=== PATIENT | male | born 1935 | race Caucasian/White ===

== ENCOUNTER → 2021-05-15 13:03 | Outpatient (BNVA) | payer MEDICARE, BC, SELFPAY | PROVIDERS: PCP Internal Medicine; Visit Provider Psychiatry & Neurology Neurology | DX: G20 Parkinson's disease (principal); F41.9 Anxiety disorder, unspecified; G47.9 Sleep disorder, unspecified | CPT/HCPCS: 99202 ==

== ENCOUNTER 2022-09-12 12:21 | Inpatient (IN) | payer MEDICARE, BC, SELFPAY ==
--- OUTSIDE RECORDS SUMMARY | 2022-09-12 12:24 | XMS_ITS | Continuity of Care Document ---
Author Name Unknown Organization [facility] ter Address [address] [place] [address]- Care Team Providers Care Silvering Department Supervisor Name Role Phone France BARBOSA, Anton Beltran Primary Care Physician En[place] [facility] [place] Date(s): 04/03/21 - 04/05/[address] [id number] Discharge Disposition: A-Transfer VNA/Home Health Attending Physician: Soila Cerna MD Admitting Physician: Soila Cerna MD Referring Physician: Not on Staff, Referring MD Allergies, Adverse Reactions, Alerts Substance Reaction Severity Status penicillins Active Latex Active Mushrooms Active iodine Active Child ASA Active Immunizations Given and Recorded Vaccine Date Status Refusal Reason influenza virus vaccine, inactivated 11/04/20 Cornelius rded SARS-CoV-2 (COVID-19) mRNA BNT-162b2 vac 11/04/20 Recorded SARS-CoV-2 (COVID-19) mRNA BNT-162b2 vac 04/09/20 Recorded SARS-CoV-2 (COVID-19) mRNA BNT-162b2 vac 03/19/20 Recorded pneumococcal 13-valent vaccine 12/04/14 Recorded Not Given Vaccine Date Status Refusal Reason pneumococcal 13-valent vaccine 09/24/18 Not Given Patient Refuses pneumococcal 23-valent vaccine 1 09/17/12 Not Give n Patient Refuses 1Result Comment: pt received in [place] Medications alfuzosin 10 mg oral tablet, extended release 1 tablet = 10 mg, By Mouth, Daily, # 30 tablet, 0 Refills, Maintenance, 01/17/21 22:32:00 EST, ER Tablet, Partial fill upon patient request if the prescription is for a schedule II opioid drug. Start Date: 01/17/21 Status: Ordered carbidopa-levodopa 25 mg-100 mg oral tablet 1 tablet, By Mouth, 4 times a day, # 120 tablet, 0 Refills, Maintenance, 01/18/21 14:47:00 EST, Tablet, Partial fill upon patient request if the prescription is for a schedule II opioid drug. Start Date: 01/18/21 Status: Ordered carbidopa-levodopa 25 mg-250 mg oral tablet 1 tablet, By Mouth, Daily at bedtime, 0 Refills, Maintenance, 01/18/21 14:46:00 EST, Partial fill upon patient request if the prescription is for a schedule II opioid drug. Start Date: 01/18/21 Status: Ordered clonazePAM 0.5 mg oral tablet 2 tablet = 1 mg, By Mouth, Daily at bedtime, # 60 tablet, 0 Refills, Maintenance, 05/16/20 12:07:00EDT, Tablet, Partial fill upon patient request if the prescription is for a schedule II opioid drug. Start Date: 05/16/20 Status: Ordered diclofenac 1% topical gel = 2 Gm, Topically, 4 times a day, # 240 Gm, 0 Refills, Maintenance, 05/16/20 12:07:00 EDT, Gel, [facility]/pharmacy #[id number], Partial fill upon patient request if the prescription is for a schedule II opioid drug., 172, cm, 05/16/20 7:28:00 EDT, Height, 72.8, k... Start Date: 05/16/20 Status: Ordered entacapone 200 mg oral tablet 1 tablet = 200 mg, By Mouth, 4 times a day, # 120 tablet, 0 Refills, Maintenance, 01/17/21 22:33:00EST, Tablet, Partial fill upon patient request if the prescription is for a schedule II opioid drug. Start Date: 01/17/21 Status: Ordered meloxicam 7.5 mg oral tablet 1 tablet = 7.5 mg, By Mouth, Daily, # 30 tablet, 0 Refills, Maintenance, 01/17/21 22:33:00 EST, Tablet, Partial fill upon patient request if the prescription is for a schedule II opioid drug. Start Date: 01/17/21 Status: Ordered Tylenol 325 mg oral tablet 975 mg, Tablet, By Mouth, 04/05/21 9:00:00 EST Start Date: 04/05/21 Stop Date: 04/05/21 Status: Completed Tylenol 325 mg oral tablet 975 mg, 3, tablet, By Mouth, 3 times a day, Refills 0, Maintenance, 05/16/20 12:07:00 EDT, Partial fill upon patient request if the prescription is for a schedule II opioid drug. Start Date: 05/16/20 Status: Ordered Vitamin D3 5000 intl units oral capsule 1 capsule = 125 mcg, By Mouth, Daily, with food, # 250 capsule, 0 Refills, Maintenance, 01/17/21 22:33:00 EST, Capsule, Partial fill upon patient request if the prescription is for a schedule II opioid drug. Start Date: 01/17/21 Status: Ordered Problem List Condition Effective Dates Status Health Status Inform ant ARF (acute renal failure)(Confirmed) Active Delirium(Confirmed) Active Osteoarthritis(Confirmed) Active Parkinson disease(Confirmed) Active Multifocal pneumonia(Confirmed) Active SBO (small bowel obstruction)(Confirmed) Active Results Radiology Reports * Exam Date Time Procedure Performing Provider Status 04/03/21 6:26 PM Chest Portable Tomasz Tillman; Auth ( Verified) Notes: (Chest Portable) Reason For Exam: Shortness of Breath RESULT: Chest Portable Chest Portable Reason: Shortness of Breath; Clinical Question(s): Other: COMPARISON: X-ray 04/02/2021 FINDINGS: LINES AND TUBES: Enterogastric tube tip and side-port are in the stomach. LUNGS AND PLEURA: Low lung volumes and bibasilar atelectasis. Central vascular markings are mildly prominent. A small right effusion is suspected. No pneumothorax. HEART, MEDIASTINUM AND LOPEZ: Mild prominence of the cardiac silhouette. Aorta is calcified. BONES AND SOFT TISSUES: No acute abnormality. IMPRESSION: Pulmonary vascular congestion and small right pleural effusion consistent with CHF. WSN: [id number] Ordering Physician: Oliver Delcid Dictated By: Davin Emanuel MD Dictated Date/Time: 04/03/21 6:42 pm Reviewed By: Davin Emanuel MD Signed By: Davin Emanuel MD Signed Date/Time: 04/03/21 6:42 pm Transcribed By: JOSE Transcribed Date/Time: 04/03/21 6:40 pm * Exam Date Time Procedure Performing Provider Status 04/03/21 9:00 AM Knee 1 or 2 Views Left Fallon Khan; Auth (Verified) Notes: (Knee 1 or 2 Views Left) Reason For Exam: Pain RESULT: Knee 1 or 2 Views Left Knee 2 Views Left Reason: Pain; Clinical Question(s): Fracture COMPARISON: None. FINDINGS: Suboptimal lateral view due to patient rotation. There is no evidence of acute or healing fracture, dislocation or bone lesion. Moderate decrease in lateral and medial compartment joint space with associated subchondral sclerosis. Marginal spurring at the patella and lateral compartment. No osteochondral defects or intra-articular loose bodies. No definite joint effusion. Vascular calcifications. IMPRESSION: Suboptimal examination. No acute osseous abnormality. Moderate osteoarthritis. I have personally reviewed the images and I agree with this report. WSN: [id number] Ordering Physician: Katia Deal Dictated By: Mino Velasquez DO Dictated Date/Time: 04/03/21 11:03 a Reviewed By: Lamberto Lehman MD, V Signed By: Lamberto Lehman MD, V Signed Date/Time: 04/03/21 11:08 am Transcribed By: JOSE Transcribed Date/Time: 04/03/21 10:56 am Vital Signs Most recent to oldest [Reference Range]: 1 2 3 Oxygen Saturation [94-100 %] 95 % (04/05/21 5:32 PM) 98 % (04/05/21 6:48 AM) 97 % (04/05/21 4:45 AM) Pulse Rate [55-90 bpm] 78 bpm (04/05/21 5:32 PM) 79 bpm (04/05/21 6:48 AM) 85 bpm (04/05/21 4:45 AM) Blood Pressure [90-138/55-84 mm Hg] 142/59mm Hg *H* (04/05/21 5:32 PM) 151/63mm Hg *H* (04/05/21 6:48 AM) 149/83mm Hg *H* (04/05/21 4:45 AM) Respiratory Rate [16-30 br/min] 18 br/min (04/05/21 5:32 PM) 18 br/min (04/05/21 12:03 PM) 18 br/min (04/05/21 6:48 AM) Temperature [96.8-100.4 DegF] 98.3 DegF (04/05/21 5:32 PM) 98.2 DegF (04/05/21 6:48 AM) 98.0 DegF (04/05/21 4:45 AM) Mode of Delivery (Oxygen) Room air (04/05/21 5:32 PM) Room air (04/05/21 6:48 AM) Room air (04/05/21 4:45 AM) Blood pressure sites Arm, right (04/05/21 5:32 PM) Arm, left (04/05/21 6:48 AM) Arm, right (04/05/21 4:45 AM) Temperature Route Oral (04/05/21 5:32 PM) Oral (04/05/21 6:48 AM) Oral (04/05/21 4:45 AM) Social History Social History Type Response Smoking Status Cigars or pipes but not daily within last 30 days entered on: 09/23/18 Sex
--- OUTSIDE RECORDS SUMMARY | 2022-09-12 12:24 | XMS_ITS | Patient Health Record ---
Author Name Unknown Organization [facility] Address [address] [facility] [address] [place] [address] Care Team Providers Care Profile Saw Setup Operator Name Role Phone Anna Cole Primary Care Provider Unavailabl e ALLERGIES Allergen (clinical drug ingredient) Drug/Non Drug Allergy documented on EMR Reaction Allergy Type Onset Date Status Unknown Drug Allergy Active Motrin Unknown Drug Allergy Active Latex Latex Unknown Allergy Active Substance with penicillin structure and antibacterial mechanism of action (substance) Penicillins Unknown Drug Allergy Active REASON FOR REFERRAL No Information MEDICATIONS Medication SIG (Take, Route, Frequency, Duration) Notes Start Date End Date Status rOPINIRole HCl 0.5 MG 1 tablet 1 to 3 hours before bedtime Orally 3 times a day Active Nasal [place] 0.05 % 2 sprays in each nostril as needed Nasally daily Active Albuterol Sulfate 108 (90 Base) MCG/ACT 2 puff as needed Inhalation every 4 hrs Active Alfuzosin HCl ER 10 MG 1 tablet immediat lester after the same meal Orally Once a day Active traZODone HCl 50 MG 1 tablet at bedtime as needed Orally Once a day Active clonazePAM 0.5 MG 1 tablet at bedtime Orally Once a day Active Sinemet 25-100 MG 1.5 tablet Orally 4 times a day Active Lidocaine 5 % 1 patch remove after 12 hours Externally every 24 hours Active Cyanocobalamin 1000 MCG 1 tablet Orally Once a day Active DULoxetine HCl 60 MG 1 capsule Orally Once a day Active Vitamin D 3000 units take 1 daily Active Loratadine 10 MG 1 tablet Orally Once a day Active SOCIAL HISTORY Sex Assigned At : Social History Observation Description Sex Assigned At Unknown PROBLEMS Problem Type ICD Code Onset Dates Problem Status W/U Status Risk SNOMED Code Notes Problem Primary osteoarthritis , 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 confirmed 594996001 Problem Primary osteoarthritis , left ankle and foot (M19.072) Active confirmed [id number] PLAN OF TREATMENT No Information Insurance Providers Payer Name Payer Address Payer Phone Subscriber Number Group Number Insured Name Patient Relationship to Insured Coverage Start Date Coverage End Date [employer] of [place] [address] [place] [phone] [id number] Florin Allred Self - patient is the insured Medex Blue Hyper Wear [address] [place] [phone] [id number] Florin Allred Self - patient is the insured MEDICAL (GENERAL) HISTORY Medical History History ICD Code GERD heme + stool small bowel obstruction anemia benign prostatic hypertrophy Parkinson's disease inflammatory arthritis osteoarthritis of the ankles osteoarthritis of the left knee osteoarthritis of the lumbar spine osteoarthritis of both hands osteoarthritis of both feet osteoporosis hearing loss bilateral Surgical History Surgery Date(Month/Year) right knee replacement s/p hip replacement appendectomy cataract removal right foot hammer toe repair cholecystectomy hernia repair knee surgery colectomy
--- OUTSIDE RECORDS SUMMARY | 2022-09-12 12:24 | XMS_ITS | Continuity of Care Document ---
Author Name Unknown Organization [facility] Address [address] [place] [address]- Care Team Providers Care Crop Setting Out Machine Operator Name Role Phone France BARBOSA, Anton Beltran Primary Care Physician Encounter 01/23/21 - 02/21/21 [facility] [address] [place] [address]- Discharge Disposition: GOALS MET Allergies, Adverse Reactions, Alerts Substance Reaction Severity Status penicillins Active Latex Active iodine Active Child ASA Active Mushrooms Active Immunizations Given and Recorded Vaccine Date [...] Patient Refuses 1Result Comment: pt received in [place] Medications alfuzosin 10 mg oral tablet, extended [...] 0 Refills, Maintenance, 05/16/20 12:07:00 EDT, Gel, [facility]/pharmacy #[id number], Partial fill upon patient request [...] opioid drug. Start Date: 01/17/21 Status: Ordered lidocaine 5% topical film 2 patch, Topically, Daily, # 60 patch, 0 Refills, Maintenance, 05/16/20 12:08:00 EDT, Patch, [facility]/pharmacy #[id number], Partial fill upon patient request if the prescription is for a schedule II opioid drug., 2 patch Topically Daily, 172, cm, 05/16/20 7:28:0... Start Date: 05/16/20 Status: Ordered meloxicam 7.5 mg oral tablet 1 tablet = 7.5 mg, By Mouth, Daily, # 30 tablet, 0 Refills, Maintenance, 01/17/21 22:33:00 EST, Tablet, Partial fill upon patient request if the prescription is for a schedule II opioid drug. Start Date: 01/17/21 Status: Ordered rOPINIRole 1 mg oral tablet = 1 mg, By Mouth, 3 times a day, # 90 tablet, 0 Refills, Maintenance, 05/16/20 12:09:00 EDT, Tablet, [facility]/pharmacy #[id number], Partial fill upon patient request if the prescription is for a schedule II opioid drug., 172, cm, 05/16/20 7:28:00 EDT, Height, 72... Start Date: 05/16/20 Status: Ordered Tylenol 325 mg oral tablet [...] pneumonia(Confirmed) Active SBO (small bowel obstruction)(Confirmed) Active Social History Social History Type Response Smoking Status Cigars or pipes but not daily within last 30 days entered on: 09/23/18 Sex
--- OUTSIDE RECORDS SUMMARY | 2022-09-12 12:24 | XMS_ITS | Continuity of Care Document ---
Author Name Unknown Organization [facility] ter Address [address] [place] [address]- Care Team Providers Care Gang Plank Workman Name Role Phone France BARBOSA, Anton Beltran Primary Care Physician [place] [facility] [id number] Date(s): 01/22/21 - 02/21/[address] [place] [address] [address]- Attending Physician: Not on Staff, Attending MD Admitting Physician: Not on Staff, Admitting MD Referring Physician: Not on Staff, Referring [...] Patient Refuses 1Result Comment: pt received in [place] Medications alfuzosin 10 mg oral tablet, extended [...] 0 Refills, Maintenance, 05/16/20 12:07:00 EDT, Gel, [facility]/pharmacy #[id number], Partial fill upon patient [...] 0 Refills, Maintenance, 05/16/20 12:08:00 EDT, Patch, [facility]/pharmacy #[id number], Partial fill upon patient request if [...] 0 Refills, Maintenance, 05/16/20 12:09:00 EDT, Tablet, [facility]/pharmacy #[id number], Partial fill upon patient [...]
--- OUTSIDE RECORDS SUMMARY | 2022-09-12 12:24 | XMS_ITS | Continuity of Care Document ---
Author Name Unknown Organization [facility] Address [address] [place] [address]- Care Team Providers Care Bread Pan Greaser Name Role Phone France BARBOSA, Anton Beltran Primary Care Physician Encounter 06/15/21 - 07/26/21 [facility] [address] [place] [address]- Discharge Disposition: GOALS MET Allergies, Adverse Reactions, Alerts Substance Reaction Severity Status penicillins Active Latex Active iodine Active Child ASA Active Mushrooms Active Immunizations Given and Recorded Vaccine Date Status Refusal Reason influenza virus vaccine, inactivated 11/04/20 Cornelius rded influenza virus vaccine, inactivated 10/22/19 Cornelius rded influenza virus vaccine, inactivated 11/24/18 Cornelius rded influenza virus vaccine, inactivated 12/14/17 Cornelius rded influenza virus vaccine, inactivated 11/19/16 Cornelius rded influenza virus vaccine, inactivated 12/17/15 Cornelius rded influenza virus vaccine, inactivated 10/26/14 Cornelius rded influenza virus vaccine, inactivated 11/29/13 Cornelius rded SARS-CoV-2 (COVID-19) mRNA BNT-162b2 vac 11/04/20 Recorded SARS-CoV-2 (COVID-19) mRNA BNT-162b2 vac 04/09/20 Recorded SARS-CoV-2 (COVID-19) mRNA BNT-162b2 vac 03/19/20 Recorded pneumococcal 13-valent vaccine 12/04/14 Recorded pneumococcal 23-valent vaccine 10/12/12 Recorded tetanus/diphtheria/pertussis, acel(Tdap) 10/12/12 Recorded Not Given Vaccine Date Status Refusal Reason pneumococcal 13-valent vaccine 09/24/18 Not Given Patient Refuses pneumococcal 23-valent vaccine 1 09/17/12 Not Give n Patient Refuses 1Result Comment: pt received in [place] Medications alfuzosin 10 mg oral tablet, extended release 1 tablet = 10 mg, By Mouth, Daily, # 30 tablet, 0 Refills, Maintenance, 01/17/21 22:32:00 EST, ER Tablet, Partial fill upon patient request if the prescription is for a schedule II opioid drug. Start Date: 01/17/21 Status: Ordered amLODIPine 5 mg oral tablet 5 mg, 1, tablet, By Mouth, Daily, # 90 tablet, Refills 2, Tot. Refills 2, Maintenance, 06/14/21 9:19:00 EDT, Route to Pharmacy Electronically, [facility]/pharmacy #[id number], Partial fill upon patient request ifthe prescription is for a schedule II opioid drug.,... Start Date: 06/14/21 Stop Date: 03/11/22 Status: Ordered carbidopa-levodopa 25 mg-100 mg oral [...] opioid drug. Start Date: 01/18/21 Status: Ordered Chem 7 in a week Chem 7 in a week, See Instructions, # 1 each, Refills 0, Tot. Refills 0, Maintenance, Results to PCP, 06/14/21 9:24:00 EDT, Supply Start Date: 06/14/21 Status: Ordered clonazePAM 0.5 mg oral tablet [...] 0 Refills, Maintenance, 05/16/20 12:07:00 EDT, Gel, [facility]/pharmacy #[id number], Partial fill upon patient request if [...] Status: Ordered rOPINIRole 1 mg oral tablet 1 tablet = 1 mg, By Mouth, 3 times a day, # 90 tablet, 5 Refills, Maintenance, 06/05/21 14:03:00 EDT, Tablet, Partial fill upon patient request if the prescription is for a schedule II opioid drug. Start Date: 06/05/21 Status: Ordered Tylenol 325 mg oral capsule 2 capsule = 650 mg, By Mouth, 2 times a day, PRN as needed for fever, # 20 capsule, 0 Refills, Maintenance, 06/05/21 0:45:00 EDT, Capsule, Partial fill upon patient request if the prescription is fora schedule II opioid drug. Start Date: 06/05/21 Status: Ordered Vitamin D3 5000 intl units [...] Inform ant ARF (acute renal failure)(Confirmed) Active COVID-19(Confirmed) Active COVID-19(Confirmed) 1 06/14/21 Active Delirium(Confirmed) Active HTN (hypertension)(Confirmed) Active Osteoarthritis(Confirmed) Active Parkinson disease(Confirmed) Active Parkinson's disease(Confirmed) Active Multifocal pneumonia(Confirmed) Active SBO (small bowel obstruction)(Confirmed) Active SBO (small bowel obstruction)(Confirmed) Active 1Problem added by Discern Expert Social History Social History Type Response Smoking Status Cigars or pipes but not daily within last 30 days entered on: 09/23/18 Sex
--- OUTSIDE RECORDS SUMMARY | 2022-09-12 12:24 | XMS_ITS | Continuity of Care Document ---
Author Name Unknown Organization [facility] Address Unknown Care Team Providers Care Laboratory Chief Name Role Phone France BARBOSA, Anton Beltran Primary Care Physician Encounter [facility] [id number] Date(s): 04/05/21 - 05/16/21 [facility] Attending Physician: Nba BARBOSA, Curly Barrientos Referring Physician: Not on Staff, Referring MD [...] Patient Refuses 1Result Comment: pt received in [place] Medications alfuzosin 10 mg oral tablet, extended [...] 0 Refills, Maintenance, 05/16/20 12:07:00 EDT, Gel, [facility]/pharmacy #[id number], Partial fill upon [...]
--- OUTSIDE RECORDS SUMMARY | 2022-09-12 12:24 | XMS_ITS | Continuity of Care Document ---
Author Name Unknown Organization [facility] Address Unknown Care Team Providers Care Web Development Consultant Name Role Phone France BARBOSA, Anton Beltran Primary Care Physician [place] [facility] [place] [facility] [id number] Date(s): 04/16/21 - 05/16/21 [facility] Attending Physician: Arden Nathan Admitting Physician: AdmArden larose Referring Physician: AdmArden larose Allergies, Adverse Reactions, Alerts Substance Reaction Severity [...] Patient Refuses 1Result Comment: pt received in [place] Medications alfuzosin 10 mg oral tablet, extended [...] 0 Refills, Maintenance, 05/16/20 12:07:00 EDT, Gel, [facility]/pharmacy #[id number], Partial fill upon patient request [...]
[2022-09-12 13:17] VITALS: BMI 20.2
[2022-09-12 13:18] VITALS: BP 141/65; PULSE 80; RESP 16; TEMP 36.3; O2SAT 99
--- NOTE | 2022-09-12 15:26 | HO.PSYADMNOT ---
HPI Date of Service: 09/12/22 Chief Complaint: F32.9, F41.9, F02.81 Sources of Information: patient interviewed, chart reviewed and crisis/core team assessment reviewed HPI Subjective Notes: [place] Warning and Conditional Voluntary Narrative: The patient is an 87-year-old [place] male, for more than 50 years, father of adult children, retired independent business min, living with his family with good social support referred from the emergency room of [facility] for exacerbation of depression with suicidal ideation by overdose on pills. On interview, the patient denies prior psychiatric history, he stated that he was diagnosed with Parkinson's disorder 8 years ago and he had been following treatment. He admitted in the last 6 months he started presenting depressive symptoms elicited by depressed mood, anhedonia, lack of energy, feelings of hopelessness and recently suicidal ideation. The patient took 6 or 7 pills and he decided to go to his basement and overdose so he could be found by his family. He has never had before suicidal ideation. He informed that and he was rushed to the emergency room, medically cleared and transferring to this facility for psychiatric stabilization. The patient adamantly denies psychotic symptoms he denies visual or auditory hallucinations, he denies psychotic symptoms with his Parkinson medication and he stated that he has used clonazepam in the past for insomnia and anxiety. He has an extensive medical history with several abdominal surgeries but he was able to cope with them very well. We discussed at length risks, benefits, side-effects and alternatives and he agreed on the plan below. He is able to contract for safety. Medical Evaluation Reviewed: Hospitalist Sumaya Pending [facility] Medical History Anxiety Arthritis Depression Parkinson's disease Sleep disorder Surgical History H/O knee surgery History of hip surgery Hx of appendectomy Hx of cholecystectomy Family History: Denies Social History: The patient was born and raised in [place], he emigrated to the [facility] and lived in [place] for several years. He is for more than 50 years and his father of adult children. He has good social support Substance History: Denies Trauma History: Denies Diagnostics Vital Signs (24Hr): Vital Signs - 24 hr 09/12/22 13:18 Temperature 97.3 F Pulse Rate 80 Respiratory Rate 16 Blood Pressure 141/65 H Pulse Oximetry 99 Oxygen Delivery Method Room Air BMI result Body Mass Index 20.2 Meds/Allergies Meds Home Medications Medication Instructions Recorded Confirmed Type albuterol sulfate 90 mcg/actuation 1 puff inhalation QID 05/15/21 05/15/21 History aerosol inhaler (ProAir HFA) albuterol sulfate 90 mcg/actuation 1 puff inhalation QID 05/15/21 05/15/21 History aerosol inhaler (Ventolin HFA) alfuzosin 10 mg tablet,extended 10 mg PO DAILY 05/15/21 05/15/21 History release 24 hr cefixime 400 mg capsule (Suprax) 400 mg PO DAILY 05/15/21 05/15/21 History fluticasone furoate 50 inhalation 05/15/21 05/15/21 History mcg/actuation blister powder for inhalation ibuprofen 800 mg tablet 800 mg PO Q8H 05/15/21 05/15/21 History meloxicam 7.5 mg tablet 7.5 mg PO DAILY 05/15/21 05/15/21 History ropinirole 1 mg tablet 1 mg PO TID 05/15/21 05/15/21 History sertraline 50 mg tablet 50 mg PO DAILY 05/15/21 05/15/21 History Allergies Allergies Allergy/AdvReac Type Severity Reaction Status Date / Time Penicillins Allergy Mild Rash Verified 05/15/21 13:18 aspirin Allergy Unknown Rash Uncoded 05/15/21 13:18 iodine Allergy Unknown rash Uncoded 05/15/21 13:18 latex Allergy Unknown Unknown Uncoded 05/15/21 13:18 Mental Status Exam Mental Status Exam Patient Appearance: Appropriate (On hospital gowns) Patient Orientation: Person and Situation Level of Consciousness: Awake and Appropriate Patient Behavior: Cooperative Mood Description: Calm and Depressed Affect Description: Constricted Patient Cognition Impaired: Yes Ability to Follow Directions: Good Speech Pattern: Clear Hallucinations: None Delusions: Not Present Thought Process: Distracted Thought Content: positive for Circumstantial Depressive Symptoms: Changes in Appetite, Feelings of Worthlessness and Significant Weight Gain Judgement: Fair Assessment & Plan Assessment & Plan (1) Major depressive disorder: Status: Acute Code(s): F32.9 - Major depressive disorder, single episode, unspecified (2) Parkinson's disease: Status: Acute Code(s): G20 - Parkinson's disease (3) Arthritis: Status: Acute Code(s): M19.90 - Unspecified osteoarthritis, unspecified site Plan The patient is an elderly is panic male with no prior formal psychiatric history but with a history of Parkinson for the last 8 years who was brought into the facility after he overdose on prescription pills in a suicidal attempt. This is the 1st and the patient had a depressive episode and is in clear correlation with worsening of his health and progression of Parkinson's. The patient is able to contract for safety in the facility. Plan 1. Gather collateral information. 2. Continue with regular medications. 3. Continue with medical workout. 4. Regular blood work. 5. Reassessment with results 6. Start Lexapro 5 mg p.o. q.a.m. to target depression. 7. Referral to occupational therapist for neuro cognitive testing. Patient educated on: diagnosis and therapeutic strategies Informed Consent: understands Reason for continued inpatient stay Substantial Risk for: harm to self, inability to function, rapid decompensation and med/psych decompensation Statement Statement: I have reviewed the history and physical and performed a pertinent examination on my patient. No changes have occurred unless specified. If the History and Physical was not performed prior to admission, the Hospitalist's service will be consulted for completing the admission physical. Time Spent With Patient Time: Total time managing care of this patient today __45__ minutes.
[2022-09-12] MEDS: Carbidopa/Levodopa 25/100 TABLET 1.5 TAB PO ×3 (17:43→22:15)
[2022-09-12 18:00] VITALS: BP 139/81; PULSE 69; RESP 18; TEMP 36.1; O2SAT 100
--- NOTE | 2022-09-12 18:16 | HO.PM.IMCN ---
History of Present Illness Data of Consult Service Date: 09/12/22 Primary Care Provider: None Physician HPI Reason for consult: Admission H&P Pt is an 87-year-old male with a PMH significant for?Parkinson's disease, arthritis, HTN, multiple SBOs, depression, insomnia, and anxiety who is admitted to [facility] for increased depression anxiety with SI by overdosing on pills. Medical consult for admission H&P. ?Patient complains of chronic arthritic hand, knee, and right ankle pain. Patient also has a history of chronic constipation, though he states likely he has been able to go normally. Patient has no acute medical complaints at this time. Denies headache, vision changes, lightheadedness, dizziness. No chest pain/pressure, palpitations. Denies shortness of breath. No fever, chills, nausea, vomiting, abdominal pain. Review of Systems Review of Systems: Chronic and, knee, ankle pain Patient has no acute medical complaints at this time Yes all other systems are reviewed and are negative [facility] Medical History Anxiety Arthritis Depression Parkinson's disease Sleep disorder Surgical History H/O knee surgery History of hip surgery Hx of appendectomy Hx of cholecystectomy Social History Household Members: Spouse Housing: House Do you presently have visiting nurse or other home services: No Alcohol intake: current Patient Tobacco Use Status: Current everyday Tobacco user Tobacco use type: Cigar Smoked in Last 30 Days: Yes Patient Interested in Nicotine Replacement: No Patient Given Instructions on How to Stop Smoking: No Second Hand Smoke Exposure: No Use of substances other than those prescribed or required for medical reasons: No Have you been hit, kicked, punched, or otherwise hurt by someone within the past year? If so, by whom?: No Do you feel safe in your current relationship?: Yes Is there a partner from a previous relationship who is making you feel unsafe now?: No Are you made to feel afraid or neglected: No Advance Directives: No Advance Directives Information Provided: No Do you have thoughts of harming others: None Do you have a plan to hurt others: No Plan Recently lost weight without trying: Yes How much weight loss: 24-33 pounds Eating poorly because of decreased appetite: No Nutrition screen score: 5 Nutrition Risks: No Nutritional Risk Poor oral hygiene: No Meds Allergies Allergy/AdvReac Type Severity Reaction Status Date / Time Penicillins Allergy Mild Rash Verified 05/15/21 13:18 aspirin Allergy Unknown Rash Uncoded 05/15/21 13:18 iodine Allergy Unknown rash Uncoded 05/15/21 13:18 latex Allergy Unknown Unknown Uncoded 05/15/21 13:18 Active Medications: Current Medications Acetaminophen (Acetaminophen 325 Mg Tablet) 650 mg PO Q6H PRN PRN Reason: Headache/Pain Mild Scale (1-3) Al Hydroxide/Mg Hydroxide (Magnesium Hydrox/Alum Hydrox 30 Ml Oral.Susp) 30 ml PO Q6H PRN PRN Reason: Heartburn/Nausea Carbidopa/Levodopa (Carbidopa/Levodopa 25/100 Tablet) 1.5 tab PO 0700,1000,1300,1600,1900,2100 [facility] Last Admin: 09/12/22 17:43 Dose: 1.5 tab Clonazepam (Clonazepam 1 Mg Tablet) 1 mg PO BEDTIME [facility] Donepezil HCl (Donepezil Hcl 5 Mg Tablet) 5 mg PO BEDTIME [facility] Duloxetine HCl (Duloxetine Hcl 30 Mg Capsule.Dr) 30 mg PO BID [facility] Entacapone (Entacapone 200 Mg Tablet) 200 mg PO QID [facility] Finasteride (Finasteride 5 Mg Tablet) 5 mg PO DAILY [facility] Hydroxyzine HCl (Hydroxyzine Hcl 25 Mg Tablet) 25 mg PO Q6H PRN PRN Reason: Anxiety Magnesium Hydroxide (Milk Of Magnesia 30 Ml Oral.Susp) 30 ml PO DAILY PRN PRN Reason: Constipation Mirtazapine (Mirtazapine 30 Mg Tablet) 30 mg PO BEDTIME [facility] Polyethylene Glycol (Polyethylene Glycol 3350 17 Gm Powd.Pack) 17 gm PO DAILY [facility] Trazodone HCl (Trazodone Hcl 50 Mg Tablet) 50 mg PO BEDTIME MRX1 PRN PRN Reason: Insomnia Home Medications Medication Instructions Recorded Confirmed Last Taken Type albuterol sulfate 90 mcg/actuation 1 puff inhalation QID 05/15/21 09/12/22 Unknown History aerosol inhaler (ProAir HFA) alfuzosin 10 mg tablet,extended 10 mg PO DAILY 05/15/21 09/12/22 Unknown History release 24 hr ibuprofen 800 mg tablet 800 mg PO Q8H 05/15/21 09/12/22 Unknown History carbidopa 25 mg-levodopa 100 mg 1 tab PO 6XD Parkinsons 09/12/22 09/12/22 Unknown History tablet (Sinemet) clonazepam 0.5 mg tablet 1 mg PO BEDTIME 09/12/22 09/12/22 Unknown History Physical Exam Vital Signs and Narrative: Vital Signs: Last Vital Signs Temp 97.3 F 09/12/22 13:18 Pulse 80 09/12/22 13:18 Resp 16 09/12/22 13:18 BP 141/65 H 09/12/22 13:18 Pulse Ox 99 09/12/22 13:18 O2 Del Method Room Air 09/12/22 13:18 BMI result Body Mass Index 20.2 General: AOx4, no acute distress Resp: CTA bilaterally CVS: S1, S2, RRR GI: +BS, NT, no distention Skin: Diffuse bruising on upper extremities Neuro: Cranial nerves II-XII grossly intact bilaterally. Motor grossly intact bilaterally. Diminished strength 4/5 of upper and lower extremities bilaterally. Extremities: No edema Psych: Appropriate affect Assessment and Plan (1) Routine history and physical examination of adult: Status: Acute Plan Pt is an 87-year-old male with a PMH significant for?Parkinson's disease, arthritis, HTN, multiple SBOs, depression, insomnia, and anxiety who is admitted to [facility] for increased depression anxiety with SI by overdosing on pills. Medical consult for admission H&P. Mood disorder Plan as per psychiatry Parkinson's disorder Continue carbidopa-levodopa, entacapone Arthritis Patient complains of arthritic pain in hands, knees, right ankle Continue ibuprofen Chronic constipation Continue polyethylene glycol HTN Continue alfuzosin Thank you for allowing us to participate in the care of this patient. Signing off at this time. Please let us know if there are any acute complaints or questions. Time Spent With Patient Time: Total time managing care of this patient today ____ minutes.
--- NOTE | 2022-09-12 18:19 | PC.ADMIT ---
87 year old male arrived on unit at 1240 having been transported from [facility] secondary to increased SI with plans including taking pills, shooting himself or jumping [place] a [place] near his [place]. Patient stated he was anxious and irritable and took some extra Parkinsons pills. Patient is alert and oriented x4 . Signed CV on admission. Participated in skin check/weight. Past medical history includes small bowel obstruction, HTN, . Patient participated in admission process. Oriented to the unit. Observed interacting with peers.Appetite good. Well groomed and appears younger than stated age. Legals signed by patient. Oriented to unit. Hospitalist consult done.
[2022-09-12] MEDS: DULoxetine HCl 30 MG CAPSULE.DR PO (20:20)
[2022-09-12] MEDS: clonazePAM 1 MG TABLET PO (20:20)
[2022-09-12] MEDS: Donepezil HCl 5 MG TABLET PO (20:20)
[2022-09-12] MEDS: Mirtazapine 30 MG TABLET PO (20:20)
[2022-09-13 06:00] VITALS: BP 138/62; PULSE 69; RESP 16; TEMP 36.4; O2SAT 99
[2022-09-13 07:58] LABS: Alanine Aminotransferase < 5 U/L (0-40); Albumin Level 3.8 g/dL (3.5-5.0); Alkaline Phosphatase 86 U/L (39-117); Anion Gap 14 (12-20); Aspartate Amino Transferase 13 U/L (5-37); Bilirubin Total 1.4 mg/dL (0.0-1.0); Blood Urea Nitrogen 23 mg/dL (9-16); Calcium 9.2 mg/dL (8.4-10.2); Carbon Dioxide 20 mmol/L (22-29); Chloride 109 mmol/L (96-108); Cholesterol 161 mg/dL; Estimated Glomerular Filt Rate > 60; Glucose Fasting 86 mg/dL (60-99); HDL Cholesterol 55 mg/dL; LDL Cholesterol Calculated 93 mg/dl; Potassium 4.1 mmol/L (3.3-5.1); Sodium 139 mmol/L (135-145); Total Protein 6.1 g/dL (6.5-8.0); Triglycerides 65 mg/dL
[2022-09-13] MEDS: Finasteride 5 MG TABLET PO (08:04)
[2022-09-13] MEDS: polyethylene glycoL 3350 17 GM POWD.PACK PO (08:05)
[2022-09-13] MEDS: DULoxetine HCl 30 MG CAPSULE.DR PO ×2 (08:05→20:07)
[2022-09-13] MEDS: Carbidopa/Levodopa 25/100 TABLET 1.5 TAB PO ×5 (08:08→18:39)
--- NOTE | 2022-09-13 08:12 | P.PNPSI_ITS ---
Subjective Subjective Date of Service: 09/13/22 Reason For Visit: F32.9, F41.9, F02.81 Subjective Notes: Conditional Voluntary Interim History: The nursing staff reported the patient slept well last night, he has been taking his medications as prescribed. On interview the patient reports no side effects by we are going to try to contact with the pharmacy to get the Sinemet on the right dose. No active suicidal ideation at this moment Mental Status Exam Mental Status Exam Patient Appearance: Well Grooomed and Appropriate Patient Orientation: Person and Situation Level of Consciousness: Awake and Appropriate Patient Behavior: Guarded and Passive Mood Description: Withdrawn Affect Description: Constricted Patient Cognition Impaired: Yes Ability to Follow Directions: Good Speech Pattern: Clear Hallucinations: None Delusions: Not Present Thought Process: Distracted and Evasive Thought Content: positive for Bradley and positive for Circumstantial Judgement: Fair Diagnostics Vital Signs (24Hr): Vital Signs - 24 hr 09/12/22 13:18 09/12/22 18:00 Temperature 97.3 F 97 F Pulse Rate 80 69 Respiratory Rate 16 18 Blood Pressure 141/65 H 139/81 Pulse Oximetry 99 100 Oxygen Delivery Method Room Air Room Air BMI result Body Mass Index 20.2 Labs 09/13/22 07:14 Labs: Laboratory Results - last 48 hr 09/13/22 07:14 Sodium 139 Potassium 4.1 Chloride 109 H Carbon Dioxide 20 L Anion Gap 14 BUN 23 H Creatinine 1.02 Estim Creat Clear Calc 43.0 Estimated GFR > 60 Fasting Glucose 86 Calcium 9.2 Total Bilirubin 1.4 H AST 13 ALT < 5 Alkaline Phosphatase 86 Total Protein 6.1 L Albumin 3.8 Triglycerides 65 Cholesterol 161 LDL Cholesterol, Calc 93 HDL Cholesterol 55 Medications Medications Current Medications Acetaminophen (Acetaminophen 325 Mg Tablet) 650 mg PO Q6H PRN PRN Reason: Headache/Pain Mild Scale (1-3) Al Hydroxide/Mg Hydroxide (Magnesium Hydrox/Alum Hydrox 30 Ml Oral.Susp) 30 ml PO Q6H PRN PRN Reason: Heartburn/Nausea Carbidopa/Levodopa (Carbidopa/Levodopa 25/100 Tablet) 1.5 tab PO 0700,1000,1300,1600,1900,2100 [facility] Last Admin: 09/12/22 22:15 Dose: 1.5 tab Clonazepam (Clonazepam 1 Mg Tablet) 1 mg PO BEDTIME [facility] Last Admin: 09/12/22 20:20 Dose: 1 mg Donepezil HCl (Donepezil Hcl 5 Mg Tablet) 5 mg PO BEDTIME [facility] Last Admin: 09/12/22 20:20 Dose: 5 mg Duloxetine HCl (Duloxetine Hcl 30 Mg Capsule.Dr) 30 mg PO BID [facility] Last Admin: 09/13/22 08:05 Dose: 30 mg Entacapone (Entacapone 200 Mg Tablet) 200 mg PO QID [facility] Last Admin: 09/13/22 08:04 Dose: 200 mg Finasteride (Finasteride 5 Mg Tablet) 5 mg PO DAILY [facility] Last Admin: 09/13/22 08:04 Dose: 5 mg Hydroxyzine HCl (Hydroxyzine Hcl 25 Mg Tablet) 25 mg PO Q6H PRN PRN Reason: Anxiety Magnesium Hydroxide (Milk Of Magnesia 30 Ml Oral.Susp) 30 ml PO DAILY PRN PRN Reason: Constipation Mirtazapine (Mirtazapine 30 Mg Tablet) 30 mg PO BEDTIME [facility] Last Admin: 09/12/22 20:20 Dose: 30 mg Polyethylene Glycol (Polyethylene Glycol 3350 17 Gm Powd.Pack) 17 gm PO DAILY [facility] Last Admin: 09/13/22 08:05 Dose: 17 gm Trazodone HCl (Trazodone Hcl 50 Mg Tablet) 50 mg PO BEDTIME MRX1 PRN PRN Reason: Insomnia Allergies Allergies Allergy/AdvReac Type Severity Reaction Status Date / Time Penicillins Allergy Mild Rash Verified 05/15/21 13:18 aspirin Allergy Unknown Rash Uncoded 05/15/21 13:18 iodine Allergy Unknown rash Uncoded 05/15/21 13:18 latex Allergy Unknown Unknown Uncoded 05/15/21 13:18 Assessment & Plan Assessment & Plan (1) Routine history and physical examination of adult: Status: Acute Code(s): Z00.00 - Encounter for general adult medical examination without abnormal findings Plan Pt is an 87-year-old male with a PMH significant for?Parkinson's disease, arthritis, HTN, multiple SBOs, depression, insomnia, and anxiety who is admitted to [facility] for increased depression anxiety with SI by overdosing on pills. Medical consult for admission H&P. Mood disorder Plan as per psychiatry Parkinson's disorder Continue carbidopa-levodopa, entacapone Arthritis Patient complains of arthritic pain in hands, knees, right ankle Continue ibuprofen Chronic constipation Continue polyethylene glycol HTN Continue alfuzosin Plan 1. Gather collateral information. 2. Continue with Cymbalta 30 mg p.o. b.i.d. to target depression. 3. Continue with other medications. 4. Continue with Sinemet will try to gather information regarding the current dose that he is taking. Reason for continued inpatient stay Substantial Risk for: inability to function, rapid decompensation and med/psych decompensation Time Spent With Patient Time: Total time managing care of this patient today _20___ minutes.
--- NOTE | 2022-09-13 10:32 | PHA.MEDREC ---
Pharmacy Consult ? Medication Reconciliation Pharmacy has completed the medication reconciliation.sPOKE WITH SPOUSE WHO LISTED OFF ALL MEDICATIONS
[2022-09-13 18:00] VITALS: BP 141/67; PULSE 75; RESP 18; TEMP 36.6; O2SAT 100
[2022-09-13] MEDS: Mirtazapine 30 MG TABLET PO (20:07)
[2022-09-13] MEDS: Carbidopa/Levodopa CR 50/200 TABLET.ER 1 TAB PO (20:07)
[2022-09-13] MEDS: clonazePAM 1 MG TABLET PO (20:07)
[2022-09-13] MEDS: Donepezil HCl 5 MG TABLET PO (20:07)
[2022-09-14 06:00] VITALS: BP 145/65; PULSE 73; RESP 16; TEMP 35.9; O2SAT 98
[2022-09-14] MEDS: Carbidopa/Levodopa 25/100 TABLET 1.5 TAB PO ×5 (06:41→18:40)
--- NOTE | 2022-09-14 08:40 | HO.PSYCHPN ---
Subjective Subjective Date of Service: 09/14/22 Reason For Visit: F32.9, F41.9, F02.81 Subjective Notes: Conditional Voluntary Interim History: The nursing staff reported the patient has been alert oriented x3, he stated that he had been declining physically and he felt dysphoric, he denies suicidal ideation. He slept well last night. On interview the patient reports that he is feeling much better wants to be discharged as soon as possible. I explained him that we need to do some more testing and increase the Cymbalta to 30 p.o. b.i.d.. No new concerns. Mental Status Exam Mental Status Exam Patient Appearance: Well Grooomed and Appropriate Patient Orientation: Person and Situation Level of Consciousness: Awake and Appropriate Patient Behavior: Guarded and Passive Mood Description: Withdrawn and Depressed Affect Description: Constricted Patient Cognition Impaired: Yes Ability to Follow Directions: Good Speech Pattern: Clear Hallucinations: None Delusions: Not Present Thought Process: Distracted and Linear Thought Content: positive for Circumstantial Judgement: Fair Diagnostics Vital Signs (24Hr): Vital Signs - 24 hr 09/13/22 18:00 09/14/22 06:00 Temperature 97.8 F 96.7 F L Pulse Rate 75 73 Respiratory Rate 18 16 Blood Pressure 141/67 H 145/65 H Pulse Oximetry 100 98 Oxygen Delivery Method Room Air Room Air BMI result Body Mass Index 20.2 Labs 09/13/22 07:14 Labs: Laboratory Results - last 48 hr 09/13/22 07:14 Sodium 139 Potassium 4.1 Chloride 109 H Carbon Dioxide 20 L Anion Gap 14 BUN 23 H Creatinine 1.02 Estim Creat Clear Calc 43.0 Estimated GFR > 60 Fasting Glucose 86 Calcium 9.2 Total Bilirubin 1.4 H AST 13 ALT < 5 Alkaline Phosphatase 86 Total Protein 6.1 L Albumin 3.8 Triglycerides 65 Cholesterol 161 LDL Cholesterol, Calc 93 HDL Cholesterol 55 Medications Medications Current Medications Acetaminophen (Acetaminophen 325 Mg Tablet) 650 mg PO Q6H PRN PRN Reason: Headache/Pain Mild Scale (1-3) Al Hydroxide/Mg Hydroxide (Magnesium Hydrox/Alum Hydrox 30 Ml Oral.Susp) 30 ml PO Q6H PRN PRN Reason: Heartburn/Nausea Carbidopa/Levodopa (Carbidopa/Levodopa Cr 50/200 Tablet.Er) 1 tab PO BEDTIME [facility] Last Admin: 09/13/22 20:07 Dose: 1 tab Carbidopa/Levodopa (Carbidopa/Levodopa 25/100 Tablet) 1.5 tab PO 0700,1000,1300,1600,1900 [facility] Last Admin: 09/14/22 06:41 Dose: 1.5 tab Clonazepam (Clonazepam 1 Mg Tablet) 1 mg PO BEDTIME [facility] Last Admin: 09/13/22 20:07 Dose: 1 mg Donepezil HCl (Donepezil Hcl 5 Mg Tablet) 5 mg PO BEDTIME [facility] Last Admin: 09/13/22 20:07 Dose: 5 mg Duloxetine HCl (Duloxetine Hcl 30 Mg Capsule.Dr) 30 mg PO BID [facility] Last Admin: 09/13/22 20:07 Dose: 30 mg Entacapone (Entacapone 200 Mg Tablet) 200 mg PO 0700,1000,1300,1600,1900,2100 [facility] Last Admin: 09/14/22 06:47 Dose: 200 mg Finasteride (Finasteride 5 Mg Tablet) 5 mg PO DAILY [facility] Last Admin: 09/13/22 08:04 Dose: 5 mg Hydroxyzine HCl (Hydroxyzine Hcl 25 Mg Tablet) 25 mg PO Q6H PRN PRN Reason: Anxiety Magnesium Hydroxide (Milk Of Magnesia 30 Ml Oral.Susp) 30 ml PO DAILY PRN PRN Reason: Constipation Mirtazapine (Mirtazapine 30 Mg Tablet) 30 mg PO BEDTIME [facility] Last Admin: 09/13/22 20:07 Dose: 30 mg Polyethylene Glycol (Polyethylene Glycol 3350 17 Gm Powd.Pack) 17 gm PO DAILY [facility] Last Admin: 09/13/22 08:05 Dose: 17 gm Trazodone HCl (Trazodone Hcl 50 Mg Tablet) 50 mg PO BEDTIME MRX1 PRN PRN Reason: Insomnia Allergies Allergies Allergy/AdvReac Type Severity Reaction Status Date / Time Penicillins Allergy Mild Rash Verified 05/15/21 13:18 aspirin Allergy Unknown Rash Uncoded 05/15/21 13:18 iodine Allergy Unknown rash Uncoded 05/15/21 13:18 latex Allergy Unknown Unknown Uncoded 05/15/21 13:18 Assessment & Plan Assessment & Plan (1) Routine history and physical examination of adult: Status: Acute Code(s): Z00.00 - Encounter for general adult medical examination without abnormal findings Plan Pt is an 87-year-old male with a PMH significant for?Parkinson's disease, arthritis, HTN, multiple SBOs, depression, insomnia, and anxiety who is admitted to [facility] for increased depression anxiety with SI by overdosing on pills. Medical consult for admission H&P. Mood disorder Plan as per psychiatry Parkinson's disorder Continue carbidopa-levodopa, entacapone Arthritis Patient complains of arthritic pain in hands, knees, right ankle Continue ibuprofen Chronic constipation Continue polyethylene glycol HTN Continue alfuzosin Plan 1. Gather collateral information. 2. Continue with Cymbalta 30 mg p.o. b.i.d. to target depression. 3. Continue with other medications. 4. Continue with Sinemet will try to gather information regarding the current dose that he is taking. Reason for continued inpatient stay Substantial Risk for: inability to function, rapid decompensation and med/psych decompensation Time Spent With Patient Time: Total time managing care of this patient today __20__ minutes.
[2022-09-14] MEDS: Finasteride 5 MG TABLET PO (08:44)
[2022-09-14] MEDS: DULoxetine HCl 30 MG CAPSULE.DR PO ×2 (08:44→19:55)
[2022-09-14] MEDS: polyethylene glycoL 3350 17 GM POWD.PACK PO (08:45)
[2022-09-14 18:00] VITALS: BP 141/69; PULSE 77; RESP 16
[2022-09-14] MEDS: Donepezil HCl 5 MG TABLET PO (19:55)
[2022-09-14] MEDS: clonazePAM 1 MG TABLET PO (19:55)
[2022-09-14] MEDS: Carbidopa/Levodopa CR 50/200 TABLET.ER 1 TAB PO (19:56)
[2022-09-14] MEDS: Mirtazapine 30 MG TABLET PO (19:56)
[2022-09-15 09:03] VITALS: BP 145/69; PULSE 78; RESP 16; TEMP 36.4; O2SAT 99
[2022-09-15] MEDS: Carbidopa/Levodopa 25/100 TABLET 1.5 TAB PO ×5 (09:13→23:52)
[2022-09-15] MEDS: DULoxetine HCl 30 MG CAPSULE.DR PO ×2 (09:16→20:21)
[2022-09-15] MEDS: Finasteride 5 MG TABLET PO (09:19)
[2022-09-15] MEDS: polyethylene glycoL 3350 17 GM POWD.PACK PO (09:20)
--- NOTE | 2022-09-15 10:13 | HO.PSYCHPN ---
Subjective Subjective Date of Service: 09/15/22 Reason For Visit: F32.9, F41.9, F02.81 Interim History: Pt reports he slept well. He continues to denied suicidal ideation. He reports I just made a stupid comment. He reports he did not think he would have to go to the hospital. He is taking medications as prescribed. OT completed ACL 4.2, moca 01/15- moderate cognitive impairment. Medication Compliance: Yes Review of Systems Review of Systems Chronic and, knee, ankle pain Patient has no acute medical complaints at this time Yes all other systems are reviewed and are negative Mental Status Exam Mental Status Exam Patient Appearance: Well Grooomed and Appropriate Patient Orientation: Person and Situation Level of Consciousness: Awake and Appropriate Patient Behavior: Guarded and Passive Mood Description: Withdrawn and Depressed Affect Description: Constricted Patient Cognition Impaired: Yes Ability to Follow Directions: Good Speech Pattern: Clear Diagnostics Vital Signs (24Hr): Vital Signs - 24 hr 09/14/22 18:00 09/15/22 09:03 Temperature 97.6 F Pulse Rate 77 78 Respiratory Rate 16 16 Blood Pressure 141/69 H 145/69 H Pulse Oximetry 99 Oxygen Delivery Method Room Air BMI result Body Mass Index 20.2 Labs 09/13/22 07:14 Medications Medications Current Medications Acetaminophen (Acetaminophen 325 Mg Tablet) 650 mg PO Q6H PRN PRN Reason: Headache/Pain Mild Scale (1-3) Al Hydroxide/Mg Hydroxide (Magnesium Hydrox/Alum Hydrox 30 Ml Oral.Susp) 30 ml PO Q6H PRN PRN Reason: Heartburn/Nausea Carbidopa/Levodopa (Carbidopa/Levodopa Cr 50/200 Tablet.Er) 1 tab PO BEDTIME [facility]ENNIE Last Admin: 09/14/22 19:56 Dose: 1 tab Carbidopa/Levodopa (Carbidopa/Levodopa 25/100 Tablet) 1.5 tab PO 0700,1000,1300,1600,1900 BENNIE Last Admin: 09/15/22 09:13 Dose: 1.5 tab Clonazepam (Clonazepam 1 Mg Tablet) 1 mg PO BEDTIME BENNIE Last Admin: 09/14/22 19:55 Dose: 1 mg Donepezil HCl (Donepezil Hcl 5 Mg Tablet) 5 mg PO BEDTIME BENNIE Last Admin: 09/14/22 19:55 Dose: 5 mg Duloxetine HCl (Duloxetine Hcl 30 Mg Capsule.Dr) 30 mg PO BID [facility] Last Admin: 09/15/22 09:16 Dose: 30 mg Entacapone (Entacapone 200 Mg Tablet) 200 mg PO 0700,1000,1300,1600,1900,2100 [facility] Last Admin: 09/15/22 09:21 Dose: 200 mg Finasteride (Finasteride 5 Mg Tablet) 5 mg PO DAILY [facility] Last Admin: 09/15/22 09:19 Dose: 5 mg Hydroxyzine HCl (Hydroxyzine Hcl 25 Mg Tablet) 25 mg PO Q6H PRN PRN Reason: Anxiety Magnesium Hydroxide (Milk Of Magnesia 30 Ml Oral.Susp) 30 ml PO DAILY PRN PRN Reason: Constipation Mirtazapine (Mirtazapine 30 Mg Tablet) 30 mg PO BEDTIME [facility] Last Admin: 09/14/22 19:56 Dose: 30 mg Polyethylene Glycol (Polyethylene Glycol 3350 17 Gm Powd.Pack) 17 gm PO DAILY [facility] Last Admin: 09/15/22 09:20 Dose: 17 gm Trazodone HCl (Trazodone Hcl 50 Mg Tablet) 50 mg PO BEDTIME MRX1 PRN PRN Reason: Insomnia Allergies Allergies Allergy/AdvReac Type Severity Reaction Status Date / Time Penicillins Allergy Mild Rash Verified 05/15/21 13:18 aspirin Allergy Unknown Rash Uncoded 05/15/21 13:18 iodine Allergy Unknown rash Uncoded 05/15/21 13:18 latex Allergy Unknown Unknown Uncoded 05/15/21 13:18 Assessment & Plan Assessment & Plan (1) Major depressive disorder: Status: Acute Code(s): F32.9 - Major depressive disorder, single episode, unspecified Plan Pt is an 87-year-old male with a PMH significant for?Parkinson's disease, arthritis, HTN, multiple SBOs, depression, insomnia, and anxiety who is admitted to [facility] for increased depression anxiety with SI by overdosing on pills. Medical consult for admission H&P. Mood disorder Plan as per psychiatry Parkinson's disorder Continue carbidopa-levodopa, entacapone Arthritis Patient complains of arthritic pain in hands, knees, right ankle Continue ibuprofen Chronic constipation Continue polyethylene glycol HTN Continue alfuzosin Plan 1. Gather collateral information. 2. Continue with Cymbalta 30 mg p.o. b.i.d. to target depression. 3. Continue with other medications. 4. Continue with Sinemet will try to gather information regarding the current dose that he is taking. 09/15- pt denies SI. He states he wants to go back home. Tolerating increase of cymbalta to 30mg po BID. No behavioral concerns. OT completed ACL 4.2 and MOCA103/17- showing moderate cognitive impairments. Reason for continued inpatient stay Substantial Risk for: inability to function Time Spent With Patient Time: Total time managing care of this patient today ____ minutes.
[2022-09-15 20:10] VITALS: BP 124/73; PULSE 81; RESP 18; TEMP 36.4; O2SAT 100
[2022-09-15] MEDS: clonazePAM 1 MG TABLET PO (20:20)
[2022-09-15] MEDS: Acetaminophen 325 MG TABLET 650 MG PO (20:20)
[2022-09-15] MEDS: Mirtazapine 30 MG TABLET PO (20:21)
[2022-09-15] MEDS: Carbidopa/Levodopa CR 50/200 TABLET.ER 1 TAB PO (20:21)
[2022-09-15] MEDS: traZODone HCL 50 MG TABLET PO (20:21)
[2022-09-15] MEDS: Donepezil HCl 5 MG TABLET PO (20:21)
[2022-09-16 08:05] VITALS: BP 149/72; PULSE 80; RESP 18; TEMP 36.2; O2SAT 99
[2022-09-16] MEDS: polyethylene glycoL 3350 17 GM POWD.PACK PO (08:45)
[2022-09-16] MEDS: Carbidopa/Levodopa 25/100 TABLET 1.5 TAB PO ×2 (08:50→10:08)
--- NOTE | 2022-09-16 11:07 | PM.PSYDC ---
DS: Providers Provider Date of Service: 09/16/22 Date of admission: 09/12/22 12:21 Date of discharge: 09/16/22 Primary care physician: None Physician Consults: 09/12/22 14:03 Consult to Hospitalist Routine Comment: Consulting Provider: Hospitalist Reason For Exam: Direct admission Attending physician on discharge: Jorge Hayward DS: Diagnosis Discharge Diagnosis (1) Major depressive disorder: Status: Acute DS: Medications Discharge Medications Home Medications: Home Medications Medication Instructions Recorded Confirmed albuterol sulfate 90 mcg/actuation 1 puff inhalation QID PRN 05/15/21 09/12/22 aerosol inhaler (ProAir HFA) Shortness Of Breath alfuzosin 10 mg tablet,extended 10 mg PO DAILY 05/15/21 09/12/22 release 24 hr carbidopa 25 mg-levodopa 100 mg 1.5 tab PO 5XD Parkinsons 09/12/22 09/13/22 tablet (Sinemet) clonazepam 0.5 mg tablet 0.25 mg PO BEDTIME 09/12/22 09/13/22 acetaminophen 325 mg tablet 650 mg PO Q6H PRN Pain (Scale 09/13/22 09/13/22 Score 1-3) adalimumab 40 mg/0.4 mL 40 mg subcut Q2W 09/13/22 09/13/22 subcutaneous pen kit (Humira(CF) Pen) carbidopa ER 50 mg-levodopa 200 mg 1 tab PO BEDTIME 09/13/22 09/13/22 tablet,extended release donepezil 5 mg tablet 5 mg PO BEDTIME 09/13/22 09/13/22 duloxetine 30 mg capsule,delayed 30 mg PO BEDTIME 09/13/22 09/13/22 release entacapone 200 mg tablet (Comtan) 200 mg PO 6XD 09/13/22 09/13/22 finasteride 5 mg tablet 5 mg PO DAILY 09/13/22 09/13/22 mirtazapine 30 mg tablet 30 mg PO BEDTIME 09/13/22 09/13/22 Previous Rx's Medication Instructions Recorded polyethylene glycol 3350 17 17 g PO DAILY #238 grams 05/15/21 gram/dose oral powder (Miralax) Mental Status Exam Mental Status Exam Patient Appearance: Well Grooomed and Appropriate Patient Orientation: Person and Situation Level of Consciousness: Awake and Appropriate Patient Behavior: Cooperative Mood Description: Calm Affect Description: Calm and Constricted Patient Cognition Impaired: Yes Ability to Follow Directions: Good Speech Pattern: Clear Hallucinations: None Delusions: Not Present Thought Process: Linear Thought Content: positive for Circumstantial Judgement: Fair Data Data Completed and Pending Completed studies during hospitalization [Text1]: 09/13/22 07:14 Sodium 139 Potassium 4.1 Chloride 109 H Carbon Dioxide 20 L Anion Gap 14 BUN 23 H Creatinine 1.02 Estim Creat Clear Calc 43.0 Estimated GFR > 60 Fasting Glucose 86 Calcium 9.2 Total Bilirubin 1.4 H AST 13 ALT < 5 Alkaline Phosphatase 86 Total Protein 6.1 L Albumin 3.8 Triglycerides 65 Cholesterol 161 LDL Cholesterol, Calc 93 HDL Cholesterol 55 DS: Summary Hospital Course Hospital Course: The patient is an 87-year-old Jimi male, , father of adult children, with good social support, retired with no prior psychiatric history was brought into the facility after he disclosed that he overdose on medications in a suicidal attempt. The patient carries a diagnosis of Parkinson disorder and his functionality has been declining in the last months. Please see the HPI from the admission note for further details. On admission, the patient reports that he has been feeling more depressed and recently had suicidal thoughts and impulsively he took 6 or 7 pills. Later on he disclosed that to his family and he was referred to the emergency room. On admission, adamantly denies psychotic symptoms or side effects with his current medications for Parkinson's. He states that he has been feeling depressed because his level of functionality has decline. But he adamantly denies suicidal ideation and he was able to contract for safety in the facility. In the unit, we did cognitive Assessment and he scored 11/30 on the [place] test and 4.2 on the [place] test. Even though, he was able to do all his activities of daily life without any impairment. He is aware of the cognitive decline. We discussed his medications and we increase his Cymbalta up to 30 mg p.o. b.i.d. to target depression. The patient was future oriented, able to contract for safety and he felt shame of the suicidal attempt. Since there were no safety concerns discharge planning was discussed. Time spent discussing smoking cessation with patient: 3 to 10 minutes Status at Discharge Cognitive/behavioral status at discharge: Impaired at baseline Functional status at discharge: independent ambulation Overall status at discharge: patient is back to baseline Time Spent with Patient Time attestation: Total time managing care of this patient today ____ minutes. Time spent: Less than 30 minutes Discharge Plan Discharge Anticipated Discharge Date/Time: 09/16/22 13:00 Patient Disposition: Home, Self-Care Discharge Diagnosis: Major depressive disorder Parkinson's disease Dementia Referrals: Physician,None [Primary Care Provider] - 1 Week Discharge Medications: New trazodone 50 mg Tablet 50 mg PO BEDTIME MRX1 PRN (Reason: Insomnia) 30 Days Qty: 30 0RF carbidopa-levodopa 50-200 mg Tablet Extended Release 1 tab PO BEDTIME 30 Days Qty: 30 0RF clonazepam 1 mg Tablet 1 mg PO BEDTIME 30 Days Qty: 30 0RF entacapone 200 mg Tablet 200 mg PO 0700,1000,1300,1600,1900,2100 30 Days Qty: 180 0RF mirtazapine 30 mg Tablet 30 mg PO BEDTIME 30 Days Qty: 30 0RF carbidopa-levodopa 25-100 mg Tablet 1.5 tab PO 0700,1000,1300,1600,1900 30 Days Qty: 225 0RF duloxetine 30 mg Capsule,Delayed Release(Dr/Ec) 30 mg PO BID 30 Days Qty: 60 0RF Continued Humira(CF) Pen 40 mg/0.4 mL pen injector kit 40 mg subcut Q2W acetaminophen 325 mg Tablet 650 mg PO Q6H PRN (Reason: Pain (Scale Score 1-3)) Qty: 60 0RF donepezil 5 mg tablet 5 mg PO BEDTIME 30 Days Qty: 30 0RF polyethylene glycol 3350 17 gram/dose powder 17 g PO DAILY 30 Days Qty: 238 6RF albuterol sulfate [ProAir HFA] 90 mcg/actuation HFA aerosol inhaler 1 puff inhalation QID PRN (Reason: Shortness Of Breath) Qty: 6.7 0RF finasteride 5 mg tablet 5 mg PO DAILY 30 Days Qty: 30 0RF alfuzosin 10 mg tablet extended release 24 hr 10 mg PO DAILY 30 Days Qty: 30 0RF Rx Instructions: administer after the same meal each day Discontinued clonazepam 0.5 mg tablet 0.25 mg PO BEDTIME Rx Instructions: administer 30 minutes before bedtime carbidopa-levodopa [Sinemet] 25-100 mg tablet 1.5 tab PO 5XD Rx Instructions: 1.5 TABLET 5XD @0700,1000,1300,1600,1900 PLUS SINEMET 50/200 MG 1 TABLET AT BEDTIME carbidopa-levodopa 50-200 mg tablet extended release 1 tab PO BEDTIME Rx Instructions: 1.5 TABLET 5XD @0700,1000,1300,1600,1900 PLUS SINEMET 50/200 MG 1 TABLET AT BEDTIME entacapone [Comtan] 200 mg tablet 200 mg PO 6XD Rx Instructions: administer at the same time as CARBIDOPA/LEVODOPA (SINEMET 25/100 MG 1.5 TABLET 5XD @0700,1000,1300,1600,1900 PLUS SINEMET 50/200 MG 1 TABLET AT BEDTIME mirtazapine 30 mg tablet 30 mg PO BEDTIME duloxetine 30 mg capsule,delayed release(DR/EC) 30 mg PO BEDTIME Discharge Orders: Discharge Order (Routine); Ordered 09/16/22 Ordered By: Jorge Hayward Diet: Advance to usual diet Activity on Discharge: As tolerated Stand Alone Forms: Patient Portal Discharge page Care Plan Goals: Care plan goals achieved in this admission Health Concerns: Continue treatment with primary care physician as an outpatient neurologist. Plan of Treatment: Continue treatment as an outpatient Assessment: Elderly male with no prior psychiatric history admitted for suicidal attempt. The patient carries a diagnosis of Parkinson's and his condition had been worsened in the last years. Currently safe, future oriented and able to contract for safety.
== END 2022-09-16 12:35 | disposition home or self-care (01) | DRG 881 ==
PROVIDERS: Admitting Provider Psychiatry & Neurology Psychiatry; Visit Provider Psychiatry & Neurology Psychiatry
DX: F32.9 Major depressive disorder, single episode, unspecified (principal); R45.851 Suicidal ideations; M19.90 Unspecified osteoarthritis, unspecified site; G20 Parkinson's disease; K59.09 Other constipation; F02.80 Dementia in other diseases classified elsewhere, unspecified severity, without behavioral disturbance, psychotic disturbance, mood disturbance, and anxiety; Z88.0 Allergy status to penicillin; Z88.6 Allergy status to analgesic agent; Z91.51 Personal history of suicidal behavior; Z91.040 Latex allergy status; Z79.620 Long term (current) use of immunosuppressive biologic; Z79.899 Other long term (current) drug therapy
CPT/HCPCS: 36415; 80053; 80061

== ENCOUNTER → 2022-09-12 12:21 | Outpatient (BNV) | payer MEDICARE, BC, SELFPAY | PROVIDERS: Admitting Provider Psychiatry & Neurology Psychiatry; Visit Provider Student in an Organized Health Care Education/Training Program | DX: M13.0 Polyarthritis, unspecified (principal) | CPT/HCPCS: 99222 ==

== ENCOUNTER → 2022-09-12 12:21 | Outpatient (BNV) | payer MEDICARE, BC, SELFPAY | PROVIDERS: Admitting Provider Psychiatry & Neurology Psychiatry; Visit Provider Psychiatry & Neurology Psychiatry | DX: F33.2 Major depressive disorder, recurrent severe without psychotic features (principal); G20 Parkinson's disease | CPT/HCPCS: 90792; 99231; 99238 ==